=== PATIENT | female | born 1945 | race African-American/Black ===

== ENCOUNTER 2018-03-18 13:32 | Outpatient (CLI) | payer MEDICARE, OTHER | END 2018-03-18 13:33 | disposition home or self-care (01) | LOC: DTY/OP 13:32 | PROVIDERS: ATTEND Family Medicine | DX: E11.9 Type 2 diabetes mellitus without complications (principal); Z79.4 Long term (current) use of insulin | CPT/HCPCS: 97802 ==

== ENCOUNTER 2021-10-05 16:48 | Outpatient (CLI) | payer MEDICARE, OTHER | END 2021-10-05 16:49 | disposition home or self-care (01) | LOC: RAD 16:48 | PROVIDERS: ATTEND Family Medicine | DX: I10 Essential (primary) hypertension (principal); R10.84 Generalized abdominal pain; R63.4 Abnormal weight loss; E11.3293 Type 2 diabetes mellitus with mild nonproliferative diabetic retinopathy without macular edema, bilateral; R41.3 Other amnesia | CPT/HCPCS: 71046; 74018 ==

== ENCOUNTER 2022-07-26 06:22 | Inpatient (IN) | payer MEDICARE, OTHER ==
[2022-07-26 07:15] LABS: #Lymphocytes 1.2 thou/uL (1.20-3.40); #Monocytes 0.5 thou/uL (0.11-0.59); #Neutrophils 4.6 thou/uL (1.40-6.50); %Basophils 0.1 % (0.0-1.0); %Eosinophils 0.6 % (0.0-10.0); %Lymphocytes 18.2 % (21.0-51.0); %Monocytes 8.4 % (0.0-10.0); %Neutrophils 72.8 % (42.0-75.0); Hemoglobin 13.5 g/dL (12.0-16.0); Mean Corpuscular HGB CONC 33.1 g/dL (32.0-36.0); Mean Corpuscular Hemoglobin 30.3 pg (27.0-31.0); Mean Corpuscular Volume 91.4 fl (78.0-98.0); Mean Platelet Volume 6.8 fL (7.4-10.4); Platelet Count 305 10x3/uL (130-400); RBC Distribution Width 12.4 % (11.5-14.5); Red Blood Cell (RBC) Count 4.46 mill/uL (4.20-5.40); White Blood Cell (WBC) Count 6.4 10x3/uL (4.8-10.8)
[2022-07-26 07:35] LABS: ALT (SGPT) 9 U/L (8-55); AST (SGOT) 15 U/L (5-34); Albumin 3.7 g/dL (3.4-4.8); Alkaline Phosphatase 65 U/L (40-110); Anion Gap 16 mmol/L (10-20); BUN (Urea Nitrogen) 7 mg/dL (9.8-20.1); Bilirubin, Total 0.7 mg/dL (0.2-1.2); Calc. Creatinine Clearance 0 mL/min (70-130); Carbon Dioxide 17 mmol/L (23-31); Chloride 107 mmol/L (98-107); Estimated GFR 80; Globulin 2.8 g/dL (2.4-3.5); Glucose 156 mg/dL (83-110); Potassium 4.1 mmol/L (3.5-5.1); Protein, Total 6.5 g/dL (5.8-8.1); Sodium 136 mmol/L (136-145)
[2022-07-26] MEDS ORDERED: Ziprasidone 20 MG VIAL ONE (09:32)
[2022-07-26 09:46] LABS: Bilirubin Negative (Negative); Blood, Urine Trace (Negative); Clarity Clear (Clear); Glucose, Urine (Dipstick) Normal (Negative); Ketone, Urine 60 mg/dL (Negative); Leukocyte 75 Leu/uL (Negative); Nitrite Negative (Negative); Protein, Urine (Dipstick) 20 mg/dL (Neg-Trace); RBC/HPF 0-3 HPF (0-3); Squamous Epithelial None Seen HPF (0-3); Urobilinogen Normal mg/dL (Less than 2); pH, Urine 6.5 (5.0-9.0)
[2022-07-26 09:49] LABS: Bacteria/HPF Rare-Few HPF (None Seen)
[2022-07-26] MEDS ORDERED: LORazepam 2 MG/ML SYR.(CARPUJECT) ONE ×2 (11:05→13:49)
[2022-07-26] MEDS ORDERED: cefTRIAXone\\ROCEPHIN 1 GM VIAL ONE (11:05)
[2022-07-26] MEDS ORDERED: Ondansetron ODT 4 MG TAB PO PRN (13:31)
[2022-07-26] MEDS ORDERED: HYDROcodone/Acetaminophen 5/325 mg Tablet PO PRN (13:31)
[2022-07-26] MEDS ORDERED: hydrALAZINE 20 MG/ML VIAL SLOW IVP PRN (13:31)
[2022-07-26] MEDS ORDERED: Acetaminophen 325 MG TAB PO PRN (13:31)
[2022-07-26] MEDS ORDERED: Dextrose 50% Abboject 50 ML SYRINGE SLOW IVP PRN (13:36)
[2022-07-26] MEDS ORDERED: Dextrose 5% in Water 1,000 ML IV PRN (13:36)
[2022-07-26] MEDS ORDERED: HumaLOG 300 UNITS/3 ML VIAL SC PRN (13:36)
[2022-07-26] MEDS ORDERED: Lorazepam 2 MG/ML VIAL SLOW IVP PRN (15:54)
[2022-07-26 16:28] VITALS: BMI 19.0
[2022-07-26] MEDS ORDERED: Iopamidol-370 76% 500 ML 1 ML ONE (17:11)
[2022-07-26] MEDS: Sodium Chloride 0.9% 1,000 ML IV SCH (18:14)
[2022-07-26] MEDS: QUEtiapine 25 MG TAB PO SCH (20:51)
[2022-07-27 04:45] LABS: Hemoglobin A1c 7.6 % (4.0-6.0)
[2022-07-27 05:21] LABS: Band 3 % (5-11); Hemoglobin 13.8 g/dL (12.0-16.0); Lymphocytes 21 % (21-51); MDiff Complete? YES; Mean Corpuscular HGB CONC 32.6 g/dL (32.0-36.0); Mean Corpuscular Hemoglobin 29.9 pg (27.0-31.0); Mean Corpuscular Volume 91.8 fl (78.0-98.0); Monocytes 12 % (0-10); Neutrophil 64 % (42-75); Nucleated RBC 1 % (0); Platelet Count 262 10x3/uL (130-400); Platelet Morphology Comment Appears Adequate; RBC Distribution Width 12.6 % (11.5-14.5); RBC Morphology Normal; Red Blood Cell (RBC) Count 4.61 mill/uL (4.20-5.40); White Blood Cell (WBC) Count 7.6 10x3/uL (4.8-10.8)
[2022-07-27] MEDS: Sodium Chloride 0.9% 1,000 ML IV SCH ×2 (08:45)
[2022-07-27] MEDS: cefTRIAXone\\ROCEPHIN 1 GM in Sodium Chloride 0.9% 100 ML IVPB SCH (10:27)
[2022-07-27] MEDS: Dextrose 5 %-0.45 % NaCl 1,000 ML IV SCH (13:02)
[2022-07-27 20:04] LABS: Anion Gap 13 mmol/L (10-20); BUN (Urea Nitrogen) 5 mg/dL (9.8-20.1); Calc. Creatinine Clearance 54 mL/min (70-130); Calcium 8.3 mg/dL (7.8-10.44); Carbon Dioxide 24 mmol/L (23-31); Chloride 103 mmol/L (98-107); Estimated GFR 86; Glucose 158 mg/dL (83-110); Potassium 3.2 mmol/L (3.5-5.1); Sodium 137 mmol/L (136-145)
[2022-07-27] MEDS: QUEtiapine 25 MG TAB PO SCH ×2 (21:01→21:36)
[2022-07-28] MEDS: Dextrose 5 %-0.45 % NaCl 1,000 ML IV SCH (03:07)
[2022-07-28 05:39] LABS: Hemoglobin A1c 7.8 % (4.0-6.0)
[2022-07-28 05:45] LABS: #Lymphocytes 1.5 thou/uL (1.20-3.40); #Monocytes 0.5 thou/uL (0.11-0.59); #Neutrophils 2.2 thou/uL (1.40-6.50); %Basophils 0.2 % (0.0-1.0); %Eosinophils 0.7 % (0.0-10.0); %Lymphocytes 35.6 % (21.0-51.0); %Monocytes 11.4 % (0.0-10.0); %Neutrophils 52.1 % (42.0-75.0); Hemoglobin 13.4 g/dL (12.0-16.0); Mean Corpuscular HGB CONC 32.9 g/dL (32.0-36.0); Mean Corpuscular Volume 91.3 fl (78.0-98.0); Mean Platelet Volume 6.8 fL (7.4-10.4); Platelet Count 277 10x3/uL (130-400); RBC Distribution Width 12.3 % (11.5-14.5); Red Blood Cell (RBC) Count 4.46 mill/uL (4.20-5.40); White Blood Cell (WBC) Count 4.3 10x3/uL (4.8-10.8)
[2022-07-28 06:01] LABS: Anion Gap 12 mmol/L (10-20); BUN (Urea Nitrogen) 5 mg/dL (9.8-20.1); Calc. Creatinine Clearance 57 mL/min (70-130); Calcium 8.2 mg/dL (7.8-10.44); Carbon Dioxide 23 mmol/L (23-31); Chloride 104 mmol/L (98-107); Estimated GFR 89; Glucose 206 mg/dL (83-110); Potassium 3.2 mmol/L (3.5-5.1); Sodium 136 mmol/L (136-145)
[2022-07-28] MEDS ORDERED: Potassium Chloride 20 MEQ TAB PO SCH (08:00)
[2022-07-28] MEDS: cefTRIAXone\\ROCEPHIN 1 GM in Sodium Chloride 0.9% 100 ML IVPB SCH (09:53)
[2022-07-28] MEDS ORDERED: Gabapentin 300 MG CAP PO PRN (12:33)
[2022-07-28] MEDS ORDERED: Gabapentin 100 MG CAP PO PRN (12:41)
[2022-07-28] MEDS: QUEtiapine 25 MG TAB PO SCH (21:09)
[2022-07-28] MEDS: Cefdinir 300 MG CAP PO SCH (21:09)
[2022-07-29] MEDS: Cefdinir 300 MG CAP PO SCH ×2 (08:25→20:55)
[2022-07-29] MEDS: Fluconazole 100 MG TAB PO SCH (08:25)
[2022-07-29 09:25] LABS: Anion Gap 17 mmol/L (10-20); BUN (Urea Nitrogen) 6 mg/dL (9.8-20.1); Calc. Creatinine Clearance 58 mL/min (70-130); Calcium 8.8 mg/dL (7.8-10.44); Carbon Dioxide 19 mmol/L (23-31); Chloride 108 mmol/L (98-107); Estimated GFR 89; Glucose 108 mg/dL (83-110); Potassium 3.8 mmol/L (3.5-5.1); Sodium 140 mmol/L (136-145)
[2022-07-29] MEDS: QUEtiapine 25 MG TAB PO SCH (20:55)
[2022-07-29] MEDS: Donepezil HCl 5 MG TAB PO SCH (20:56)
[2022-07-30] MEDS: Fluconazole 100 MG TAB PO SCH (08:35)
[2022-07-30 09:41] LABS: Anion Gap 15 mmol/L (10-20); BUN (Urea Nitrogen) 7 mg/dL (9.8-20.1); Calc. Creatinine Clearance 63 mL/min (70-130); Calcium 8.6 mg/dL (7.8-10.44); Carbon Dioxide 21 mmol/L (23-31); Chloride 109 mmol/L (98-107); Estimated GFR 91; Glucose 92 mg/dL (83-110); Potassium 3.6 mmol/L (3.5-5.1); Sodium 141 mmol/L (136-145)
[2022-07-30] MEDS: QUEtiapine 25 MG TAB PO SCH (20:03)
[2022-07-30] MEDS: Donepezil HCl 5 MG TAB PO SCH (20:03)
[2022-07-31] MEDS ORDERED: Electrolyte Replacement Protocol 1 EACH FS SCH (09:00)
[2022-07-31 09:21] LABS: BUN (Urea Nitrogen) 7 mg/dL (9.8-20.1); Calc. Creatinine Clearance 61 mL/min (70-130); Calcium 8.9 mg/dL (7.8-10.44); Carbon Dioxide 17 mmol/L (23-31); Chloride 107 mmol/L (98-107); Estimated GFR 90; Glucose 84 mg/dL (83-110); Potassium 4.9 mmol/L (3.5-5.1); Sodium 138 mmol/L (136-145)
[2022-07-31 09:36] LABS: Phosphorus 3.2 mg/dL (2.3-4.7)
[2022-07-31 09:43] LABS: Anion Gap 21 mmol/L (10-20)
[2022-07-31] MEDS: Fluconazole 100 MG TAB PO SCH (09:54)
[2022-07-31] MEDS ORDERED: Magnesium 2 GM/50 ML(in water) 2 GM in Premix Bag 1 BAG IVPB SCH (10:15)
[2022-07-31] MEDS: QUEtiapine 25 MG TAB PO SCH ×2 (21:20→21:21)
[2022-07-31] MEDS: Donepezil HCl 5 MG TAB PO SCH ×2 (21:21)
[2022-08-01] MEDS: Fluconazole 100 MG TAB PO SCH (09:43)
[2022-08-01] MEDS ORDERED: DULoxetine 30 MG CAP PO SCH (10:15)
[2022-08-01 11:00] LABS: Anion Gap 13 mmol/L (10-20); BUN (Urea Nitrogen) 8 mg/dL (9.8-20.1); Calc. Creatinine Clearance 51 mL/min (70-130); Calcium 9.1 mg/dL (7.8-10.44); Carbon Dioxide 25 mmol/L (23-31); Chloride 104 mmol/L (98-107); Estimated GFR 81; Glucose 223 mg/dL (83-110); Potassium 3.2 mmol/L (3.5-5.1); Sodium 139 mmol/L (136-145)
[2022-08-01] MEDS: Senokot S 8.6-50 MG TAB PO SCH (20:36)
[2022-08-01] MEDS ORDERED: hydrOXYzine 10 MG TAB PO SCH (20:45)
[2022-08-02] MEDS ORDERED: Electrolyte Replacement Protocol 1 EACH FS SCH (08:00)
[2022-08-02] MEDS ORDERED: Electrolyte Replacement Protocol FS PRN (08:15)
[2022-08-02 09:27] LABS: Anion Gap 15 mmol/L (10-20); BUN (Urea Nitrogen) 7 mg/dL (9.8-20.1); Calc. Creatinine Clearance 61 mL/min (70-130); Carbon Dioxide 21 mmol/L (23-31); Chloride 105 mmol/L (98-107); Estimated GFR 90; Glucose 122 mg/dL (83-110); Potassium 3.7 mmol/L (3.5-5.1); Sodium 137 mmol/L (136-145)
[2022-08-02] MEDS: Senokot S 8.6-50 MG TAB PO SCH ×2 (09:59→20:36)
[2022-08-02] MEDS: Fluconazole 100 MG TAB PO SCH (09:59)
[2022-08-02] MEDS: Rivastigmine 1.5 MG CAP PO SCH (09:59)
[2022-08-02] MEDS: DULoxetine 30 MG CAP PO SCH (09:59)
[2022-08-03 00:34] VITALS: TEMP 97.7
[2022-08-03 05:43] LABS: #Eosinphils 0.1 thou/uL (0.0-0.7); #Lymphocytes 1.6 thou/uL (1.20-3.40); #Monocytes 0.4 thou/uL (0.11-0.59); %Eosinophils 2.4 % (0.0-10.0); %Monocytes 8.6 % (0.0-10.0); Hemoglobin 14.4 g/dL (12.0-16.0); Mean Corpuscular HGB CONC 33.3 g/dL (32.0-36.0); Mean Corpuscular Hemoglobin 29.7 pg (27.0-31.0); Mean Corpuscular Volume 89.3 fl (78.0-98.0); Mean Platelet Volume 6.8 fL (7.4-10.4); Platelet Count 408 10x3/uL (130-400); Red Blood Cell (RBC) Count 4.85 mill/uL (4.20-5.40); White Blood Cell (WBC) Count 4.1 10x3/uL (4.8-10.8)
[2022-08-03] MEDS: Rivastigmine 1.5 MG CAP PO SCH (09:28)
[2022-08-03] MEDS: Senokot S 8.6-50 MG TAB PO SCH (09:29)
[2022-08-03] MEDS: Fluconazole 100 MG TAB PO SCH (09:29)
[2022-08-03] MEDS: DULoxetine 30 MG CAP PO SCH (09:29)
[2022-08-03 10:03] VITALS: BP 119/67
[2022-08-03 13:43] LABS: SARS-CoV-2 NAA Rapid Test DETECTED (NotDetected)
[2022-08-03 16:35] LABS: SARS-CoV-2 NAA Rapid Test DETECTED (NotDetected)
== END 2022-08-03 19:00 | DRG 689 ==
LOC: ERS 06:22 → ERHOLD 13:35 → 2NO 15:41 → MSONC 07-27 18:12
PROVIDERS: ADMIT Internal Medicine; ATTEND Internal Medicine
DX: N39.0 Urinary tract infection, site not specified (principal); G93.41 Metabolic encephalopathy; U07.1 COVID-19; E87.20 Acidosis, unspecified; Z66 Do not resuscitate; E87.6 Hypokalemia; R13.10 Dysphagia, unspecified; N18.2 Chronic kidney disease, stage 2 (mild); F03.90 Unspecified dementia, unspecified severity, without behavioral disturbance, psychotic disturbance, mood disturbance, and anxiety; K57.30 Diverticulosis of large intestine without perforation or abscess without bleeding; R29.6 Repeated falls; Z91.81 History of falling; Z88.8 Allergy status to other drugs, medicaments and biological substances; Z79.4 Long term (current) use of insulin
CPT/HCPCS: 36415; 51701; 70450; 70551; 71045; 74177; 80048; 80053; 81003; 81015; 83036; 83735; 84100; 85025; 87086; 93005; 96365; 96366; 96372; 96375; J0696; J1650; J2060; J3486; J3490; J7042; J7050; Q9967; U0002

== ENCOUNTER 2023-02-04 15:04 | Emergency (ER) | payer MEDICARE, OTHER ==
[2023-02-04 15:50] LABS: #Eosinphils 0.1 thou/uL (0.0-0.7); #Monocytes 0.5 thou/uL (0.11-0.59); #Neutrophils 3.3 thou/uL (1.40-6.50); %Basophils 0.5 % (0.0-1.0); %Eosinophils 1.8 % (0.0-10.0); %Lymphocytes 36.1 % (21.0-51.0); %Monocytes 7.3 % (0.0-10.0); %Neutrophils 54.1 % (42.0-75.0); Hematocrit 41.2 % (36.0-47.0); Hemoglobin 13.9 g/dL (12.0-16.0); Mean Corpuscular HGB CONC 33.7 g/dL (32.0-36.0); Mean Corpuscular Hemoglobin 28.9 pg (27.0-31.0); Mean Corpuscular Volume 85.7 fl (78.0-98.0); Mean Platelet Volume 8.7 fL (7.4-10.4); Platelet Count 333 10x3/uL (130-400); RBC Distribution Width 13.7 % (11.5-14.5); Red Blood Cell (RBC) Count 4.81 mill/uL (4.20-5.40); White Blood Cell (WBC) Count 6.2 10x3/uL (4.8-10.8)
[2023-02-04 16:14] LABS: ALT (SGPT) 21 U/L (8-55); AST (SGOT) 15 U/L (5-34); Alkaline Phosphatase 53 U/L (40-110); Anion Gap 15 mmol/L (10-20); BUN (Urea Nitrogen) 13 mg/dL (9.8-20.1); Bilirubin, Total 0.4 mg/dL (0.2-1.2); Calc. Creatinine Clearance 0 mL/min (70-130); Calcium 9.5 mg/dL (7.8-10.44); Carbon Dioxide 25 mmol/L (23-31); Chloride 104 mmol/L (98-107); Estimated GFR 74; Globulin 2.8 g/dL (2.4-3.5); Glucose 233 mg/dL (83-110); Potassium 4.4 mmol/L (3.5-5.1); Protein, Total 6.8 g/dL (5.8-8.1); Sodium 140 mmol/L (136-145)
[2023-02-04 17:00] LABS: Bacteria/HPF None Seen HPF (None Seen); Bilirubin Negative (Negative); Blood, Urine Negative (Negative); CAUTI Indications for Culture Alt mental st,lethar; Clarity Clear (Clear); Glucose, Urine (Dipstick) Normal (Negative); Ketone, Urine Negative (Negative); Leukocyte Negative Leu/uL (Negative); Nitrite Negative (Negative); Protein, Urine (Dipstick) Negative (Neg-Trace); RBC/HPF 0-3 HPF (0-3); Squamous Epithelial None Seen HPF (0-3); Urobilinogen Normal mg/dL (Less than 2); WBC/HPF 0-3 HPF (0-3); pH, Urine 6.5 (5.0-9.0)
[2023-02-04 17:04] LABS: Urine Culture Reflex No No
== END 2023-02-04 18:04 | disposition home or self-care (01) ==
LOC: ERS 15:04
DX: F03.90 Unspecified dementia, unspecified severity, without behavioral disturbance, psychotic disturbance, mood disturbance, and anxiety (principal); R41.0 Disorientation, unspecified; E11.9 Type 2 diabetes mellitus without complications; Z79.4 Long term (current) use of insulin
CPT/HCPCS: 51701; 70450; 80053; 81001; 85025; 93005

== ENCOUNTER 2023-06-08 19:36 | Emergency (ER) | payer MEDICARE, OTHER ==
[2023-06-08 21:21] LABS: #Eosinphils 0.1 thou/uL (0.0-0.7); #Monocytes 0.8 thou/uL (0.11-0.59); #Neutrophils 4.5 thou/uL (1.40-6.50); %Basophils 0.3 % (0.0-1.0); %Eosinophils 0.7 % (0.0-10.0); %Lymphocytes 20.9 % (21.0-51.0); %Monocytes 11.3 % (0.0-10.0); %Neutrophils 66.7 % (42.0-75.0); Hematocrit 41.8 % (36.0-47.0); Hemoglobin 14.1 g/dL (12.0-16.0); Mean Corpuscular HGB CONC 33.7 g/dL (32.0-36.0); Mean Corpuscular Hemoglobin 29.7 pg (27.0-31.0); Mean Platelet Volume 8.6 fL (7.4-10.4); Platelet Count 276 10x3/uL (130-400); RBC Distribution Width 13.2 % (11.5-14.5); Red Blood Cell (RBC) Count 4.75 mill/uL (4.20-5.40); White Blood Cell (WBC) Count 6.8 10x3/uL (4.8-10.8)
[2023-06-08 21:37] LABS: ALT (SGPT) 16 U/L (8-55); AST (SGOT) 12 U/L (5-34); Albumin 3.9 g/dL (3.4-4.8); Alkaline Phosphatase 59 U/L (40-110); Anion Gap 10 mmol/L (10-20); BUN (Urea Nitrogen) 7 mg/dL (9.8-20.1); Bilirubin, Total 0.6 mg/dL (0.2-1.2); Calc. Creatinine Clearance 0 mL/min (70-130); Carbon Dioxide 26 mmol/L (23-31); Chloride 101 mmol/L (98-107); Estimated GFR 74; Globulin 2.8 g/dL (2.4-3.5); Glucose 312 mg/dL (83-110); Potassium 4.3 mmol/L (3.5-5.1); Protein, Total 6.7 g/dL (5.8-8.1); Sodium 133 mmol/L (136-145)
[2023-06-08 21:47] LABS: SARS-CoV-2 NAA Rapid Test Not Detected (NotDetected)
== END 2023-06-09 01:30 | disposition home or self-care (01) ==
LOC: ERS 19:36
DX: N39.0 Urinary tract infection, site not specified (principal); E11.9 Type 2 diabetes mellitus without complications
CPT/HCPCS: 0240U; 80053; 85025; 93005; 96374; 99285; 36415